=== PATIENT | female | born 1970 | race African-American/Black ===

== ENCOUNTER 2024-08-27 20:06 | Emergency (ER) | payer BC ==
[2024-08-27 20:43] VITALS: BP 128/81; PULSE 71; RESP 20; TEMP 98.1; BMI 37.5
[2024-08-27] MEDS ORDERED: ASPIRIN 81 MG CHEWABLE TABLETS ONE (21:02)
[2024-08-27] MEDS ORDERED: ACETAMINOPHEN INJECTION 100 ML ONE (21:02)
[2024-08-27] MEDS: ACETAMINOPHEN 1000 MG/100 ML BAG IVPB ONE (21:04)
[2024-08-27] MEDS: ASPIRIN 81 MG CHEWABLE TABLETS PO ONE (21:04)
[2024-08-27 21:06] LABS: ABSOLUTE IMMATURE GRANULOCYTES 0.01 x10^3/uL (0.0-0.031); BASOPHILS # 0.02 x10^3/uL (0.01-0.08); EOSINOPHILS # 0.37 x10^3/uL (0.04-0.36); HEMATOCRIT 36.7 % (34.1-44.9); HEMOGLOBIN 11.8 g/dL (11.2-15.7); MCHC 32.2 g/dl (32.2-35.5); MEAN CELL VOLUME 90.2 fl (79.4-94.8); MEAN PLT VOLUME 11.4 fl (9.4-12.3); MONOCYTE # 0.71 x10^3/uL (0.24-0.86); MONOCYTE % 9.6 % (4.7-12.5); PLATELET COUNT 234 x10^3/uL (182-369); RDW 12.8 % (12.3-16.6)
[2024-08-27 21:18] LABS: ALBUMIN 4.2 g/dl (3.4-5.0); BILIRUBIN,TOTAL 1.1 mg/dl (0.2-1); CALCIUM 9.6 mg/dl (8.5-10.1); CREATININE 0.7 mg/dl (0.6-1.3); POTASSIUM 4.1 mmol/L (3.5-5.1); TOT PROT 6.9 g/dl (6.4-8.2)
[2024-08-27 22:41] LABS: HCV DIAGNOSTIC IN-HOUSE W/RFLX NON-REACTIVE (NONREACTIVE); HIV INTERPRETATION NEGATIVE (NEGATIVE)
== END 2024-08-27 23:36 | disposition home or self-care (01) ==
LOC: FER 20:06
PROC: 3E033NZ Introduction of Analgesics, Hypnotics, Sedatives into Peripheral Vein, Percutaneous Approach (ICD-10-PCS; principal; 2024-08-27)
DX: R07.89 Other chest pain (principal); R51.9 Headache, unspecified; R00.2 Palpitations
CPT/HCPCS: 36415; 80053; 82550; 82553; 84484; 85025; 86803; 87389; 93005; 99284-25; J0131